=== PATIENT | female | born 1990 | race Caucasian/White ===

== ENCOUNTER 2018-03-09 21:50 | Observation (INO) ==
[2018-03-09 22:12] LABS: Bilirubin,Urine Negative (Negative); Blood,Urine Large (Negative); Clarity,Urine Cloudy (Clear); Color,Urine Yellow (Yellow); Glucose,Urine (UA) Normal (Normal); Ketones,Urine 15 mg/dL (Negative); Leukocyte Esterase,Urine Moderate (Negative); Nitrite,Urine Negative (Negative); Protein,Urine 100 mg/dL (Neg-Trace); Specific Gravity,Urine 1.018 (1.010-1.025); Urobilinogen,Urine Normal (Normal)
[2018-03-09 22:15] LABS: Bacteria,Urine Few per hpf (None-Few); Hyaline Casts,Urine None Seen per lpf (None-Few); RBC,Urine 15-30 per hpf (0-3); Squamous Epithelial Cell,Urine Many per lpf (None-Few); WBC,Urine 50-100 per hpf (0-3)
[2018-03-09] MEDS ORDERED: Ketorolac 30 MG/ML VIAL IVP ONE (23:46)
[2018-03-09] MEDS ORDERED: Ondansetron 4 MG/2 ML VIAL IVP ONE (23:46)
[2018-03-09] MEDS ORDERED: 0.9 % Sodium Chloride 1,000 ML IVC ONE (23:46)
[2018-03-10 00:21] LABS: Basophils % 0.3 %; Hematocrit 41.3 % (35.3-44.9); Hemoglobin 13.6 g/dL (11.5-15.4); Immature Granulocytes % 0.9 % (0-4); Lymphocytes # 0.9 K/mcL (0.6-4.6); Lymphocytes % 11.5 %; Mean Corpuscular HGB Conc 32.9 g/dL (31.6-35.5); Mean Corpuscular Hemoglobin 28.8 pg (28.0-33.3); Mean Corpuscular Volume 87.5 fL (83.0-100.0); Mean Platelet Volume 10.2 fL (9.4-12.4); Monocytes # 0.9 K/mcL (0.0-1.3); Monocytes % 12.1 %; Neutrophils # 5.7 K/mcL (1.6-8.9); Platelet Count 223 K/mcL (140-400); Red Blood Count 4.72 M/mcL (3.82-4.97); Segmented Neutrophils % 75.2 %
[2018-03-10 00:36] LABS: Alanine Aminotransferase 15 Units/L (7-52); Albumin 3.7 g/dL (3.5-5.7); Albumin/Globulin Ratio 0.9 (1.1-2.2); Alkaline Phosphatase 71 Units/L (34-104); Aspartate Amino Transferase 16 Units/L (13-39); BUN/Creatinine Ratio 9 (6-26); Bilirubin,Direct 0.1 mg/dL (0.0-0.2); Bilirubin,Indirect 0.3 mg/dL (0.0-1.2); Bilirubin,Total 0.4 mg/dL (0.3-1.0); Blood Urea Nitrogen 14 mg/dL (6-20); Calcium 9.1 mg/dL (8.6-10.3); Carbon Dioxide 24 mEq/L (23-29); Chloride 100 mEq/L (98-107); Globulin 3.9 g/dL (2.4-3.5); Glucose 107 mg/dL (70-105); Lipase < 3 Units/L (11-82); Osmolality,Calculated 283 (280-300); Potassium 3.5 mEq/L (3.5-5.1); Sodium 136 mEq/L (136-145); Total Protein 7.6 g/dL (6.4-8.9); eGFR For African Americans 47 (> 60); eGFR For Non-African Americans 38 (> 60)
--- NOTE | 2018-03-10 01:10 | Emergency Department Note ---
Disposition Clinical Impression: Pyelonephritis, RIGOBERTO (acute kidney injury) Disposition: Admitted As Inpatient Condition: Fair Time of Disposition: 02:53 Abdominal Pain HPI - General Chief Complaint: ED Urogenital-Female Stated Complaint: NV, Fever, R Flank Pain Time Seen by Provider: 03/09/18 23:05 Source: patient Mode of arrival: ambulatory Limitations: no limitations Nursing Notes Reviewed: Yes Vital Signs Reviewed: Yes - History of Present Illness HPI Narrative: Patient is a 27-year-old female who presents to [facility] ED with a chief complaint of right-sided pain that radiates into the right flank. States she was recently diagnosed with a kidney stone and kidney infection at [place] last week. [facility] she was sent home with ciprofloxacin. However she has had persistent nausea with vomiting and has been unable to keep down anything including the pills. [facility] she has had issues with kidney stones and kidney infections for many years now and she has gone into renal failure 3 times. Patient states she just recently moved to [place] and does not have a primary care physician yet. Pt Subjective Complaint: abdominal pain, flank pain Onset (ago): day(s) Consistency: Worsening Location: RLQ Pain Severity: moderate Pain Scale: 5 Quality: aching, sharp Radiation: R flank Migration to: no migration Improves with: nothing Worsens with: nothing Associated symptoms: Reports: nausea, vomiting, fever (intermittent). Denies: diarrhea, chills Treatments prior to arrival: none - Related Data Allergies Allergy/AdvReac Type Severity Reaction Status Date / Time No Known Allergies Allergy Verified 03/09/18 21:52 All systems ED: reviewed and negative except as stated. Abdominal Pain PMH - Past Medical History Medical history: Reports: fibromyalgia, kidney stones Female Surgical History: Reports: no surgical history Psychiatric history: Reports: anxiety, depression, panic disorder - Social History Smoking status: Never smoker Alcohol use: Reports: none Drug use: Reports: none Physical Exam - General General appearance: alert, in no apparent distress - Head Head exam: atraumatic, normocephalic, normal inspection - Eye Eye exam: Present: normal appearance, EOMI - ENT ENT exam: normal exam, normal oropharynx, mucous membranes moist - Neck Neck exam: Present: normal inspection, full ROM, trachea midline - Chest Chest inspection: Present: normal inspection, symmetric chest wall rise - Respiratory Respiratory exam: Present: normal lung sounds bilaterally - Cardiovascular Cardiovascular exam: Present: normal rhythm, tachycardia - Abdominal Exam Abdominal exam: Present: soft, tenderness, normal bowel sounds. Absent: distention, guarding, rebound, rigidity Abdominal tenderness: Present: RLQ, moderate - Extremities Exam Extremities exam: Present: normal inspection, full ROM. Absent: tenderness, pedal edema - Back Exam Back exam: Present: CVA tenderness (R) - Neurological Exam Neurological exam: Present: alert, oriented X3 - Psychiatric Psychiatric exam: Present: normal affect, normal mood - Skin Skin exam: Present: warm, dry, intact, normal color Course Course Narrative: Patient seen and examined. Patient with recent diagnosis of kidney stone. States she did pass a stone but has continued to have worsening pain and now persistent nausea with vomiting. History of prior renal failure from kidney stones. She is not from around here so we do not have any baseline labs on her. Lab work, CT abdomen and pelvis without contrast ordered. We will place a line, gave her a liter of IV fluids, Zofran for nausea and Toradol for pain. - Reevaluation(s) Reevaluation #1: CT scan shows some signs of pyelonephritis. We will go ahead and treat with Levaquin. Since she does have a creatinine of 1.6, we will go ahead and admit for acute kidney injury and pyelonephritis. Discussed with hospitalist who has accepted her for admission. Time: 01:29 Vital Signs Temperature 98.9 F 03/09/18 21:52 Pulse Rate 121 03/09/18 21:52 Respiratory Rate 18 03/09/18 21:52 Blood Pressure 130/81 03/09/18 21:52 O2 Sat by Pulse Oximetry 96 03/09/18 21:52 Temperature 98.4 F 03/10/18 03:09 Pulse Rate 77 03/10/18 03:09 Respiratory Rate 14 03/10/18 03:09 Blood Pressure 115/71 03/10/18 03:09 O2 Sat by Pulse Oximetry 97 03/10/18 03:09 Oxygen Delivery Oxygen Delivery Room Air Abdominal Pain - Medical Records Medical records reviewed: Yes I reviewed the patient's medical records. - Lab Data Lab results reviewed: Yes I reviewed the patient's lab results. Result diagrams: 03/10/18 04:06 03/10/18 04:06 Lab Results 03/09/18 03/09/18 03/09/18 Range/Units 20:06 20:06 23:59 WBC 7.5 (4.3-11.1) K/mcL RBC 4.72 (3.82-4.97) M/mcL Hgb 13.6 (11.5-15.4) g/dL Hct 41.3 (35.3-44.9) % MCV 87.5 (83.0-100.0) fL MCH 28.8 (28.0-33.3) pg MCHC 32.9 (31.6-35.5) g/dL RDW 13.0 (11.5-14.5) % Plt Count 223 (140-400) K/mcL MPV 10.2 (9.4-12.4) fL Immature Gran % 0.9 (0-4) % Seg Neutrophils % 75.2 % Lymphocytes % 11.5 % Monocytes % 12.1 % Eosinophils % 0.0 % Basophils % 0.3 % Neutrophils # 5.7 (1.6-8.9) K/mcL Lymphocytes # 0.9 (0.6-4.6) K/mcL Monocytes # 0.9 (0.0-1.3) K/mcL Eosinophils # 0.0 (0.0-0.6) K/mcL Basophils # 0.0 (0.0-0.2) K/mcL Sodium (136-145) mEq/L Potassium (3.5-5.1) mEq/L Chloride (98-107) mEq/L Carbon Dioxide (23-29) mEq/L BUN (6-20) mg/dL Creatinine (0.60-1.20) mg/dL Est GFR ( Amer) (> 60) Est GFR (Non-Af Amer) (> 60) BUN/Creatinine Ratio (6-26) Glucose (70-105) mg/dL Calculated Osmolality (280-300) Lactic Acid (0.5-2.2) mmol/L Calcium (8.6-10.3) mg/dL Total Bilirubin (0.3-1.0) mg/dL Direct Bilirubin (0.0-0.2) mg/dL Indirect Bilirubin (0.0-1.2) mg/dL AST (13-39) Units/L ALT (7-52) Units/L Alkaline Phosphatase (34-104) Units/L Serum Total Protein (6.4-8.9) g/dL Albumin (3.5-5.7) g/dL Globulin (2.4-3.5) g/dL Albumin/Globulin Ratio (1.1-2.2) Lipase (11-82) Units/L Urine Color Yellow (Yellow) Urine Clarity Cloudy A (Clear) Urine pH 6.0 (5.0-8.0) pH Units Ur Specific [place] 1.018 (1.010-1.025) Urine Protein 100 H (Neg-Trace) mg/dL Urine Glucose (UA) Normal (Normal) mg/dL Urine Ketones 15 H (Negative) mg/dL Urine Blood Large H (Negative) Urine Nitrite Negative (Negative) Urine Bilirubin Negative (Negative) Urine Urobilinogen Normal (Normal) mg/dL Ur Leukocyte Esterase Moderate H (Negative) Urine Microscopic RBC 15-30 H (0-3) per hpf Urine Microscopic WBC 50-100 H (0-3) per hpf Ur Squamous Epith Cells Many H (None-Few) per lpf Urine Bacteria Few (None-Few) per hpf Hyaline Casts None Seen (None-Few) per lpf Ur Culture Indicated? NO. A (NO) Urine Test Negative (Negative) 03/09/18 03/09/18 Range/Units 23:59 23:59 WBC (4.3-11.1) K/mcL RBC (3.82-4.97) M/mcL Hgb (11.5-15.4) g/dL Hct (35.3-44.9) % MCV (83.0-100.0) fL MCH (28.0-33.3) pg MCHC (31.6-35.5) g/dL RDW (11.5-14.5) % Plt Count (140-400) K/mcL MPV (9.4-12.4) fL Immature Gran % (0-4) % Seg Neutrophils % % Lymphocytes % % Monocytes % % Eosinophils % % Basophils % % Neutrophils # (1.6-8.9) K/mcL Lymphocytes # (0.6-4.6) K/mcL Monocytes # (0.0-1.3) K/mcL Eosinophils # (0.0-0.6) K/mcL Basophils # (0.0-0.2) K/mcL Sodium 136 (136-145) mEq/L Potassium 3.5 (3.5-5.1) mEq/L Chloride 100 (98-107) mEq/L Carbon Dioxide 24 (23-29) mEq/L BUN 14 (6-20) mg/dL Creatinine 1.61 H (0.60-1.20) mg/dL Est GFR ( Amer) 47 L (> 60) Est GFR (Non-Af Amer) 38 L (> 60) BUN/Creatinine Ratio 9 (6-26) Glucose 107 H (70-105) mg/dL Calculated Osmolality 283 (280-300) Lactic Acid 0.7 (0.5-2.2) mmol/L Calcium 9.1 (8.6-10.3) mg/dL Total Bilirubin 0.4 (0.3-1.0) mg/dL Direct Bilirubin 0.1 (0.0-0.2) mg/dL Indirect Bilirubin 0.3 (0.0-1.2) mg/dL AST 16 (13-39) Units/L ALT 15 (7-52) Units/L Alkaline Phosphatase 71 (34-104) Units/L Serum Total Protein 7.6 (6.4-8.9) g/dL Albumin 3.7 (3.5-5.7) g/dL Globulin 3.9 H (2.4-3.5) g/dL Albumin/Globulin Ratio 0.9 L (1.1-2.2) Lipase < 3 L (11-82) Units/L Urine Color (Yellow) Urine Clarity (Clear) Urine pH (5.0-8.0) pH Units Ur Specific [place] (1.010-1.025) Urine Protein (Neg-Trace) mg/dL Urine Glucose (UA) (Normal) mg/dL Urine Ketones (Negative) mg/dL Urine Blood (Negative) Urine Nitrite (Negative) Urine Bilirubin (Negative) Urine Urobilinogen (Normal) mg/dL Ur Leukocyte Esterase (Negative) Urine Microscopic RBC (0-3) per hpf Urine Microscopic WBC (0-3) per hpf Ur Squamous Epith Cells (None-Few) per lpf Urine Bacteria (None-Few) per hpf Hyaline Casts (None-Few) per lpf Ur Culture Indicated? (NO) Urine Test (Negative) - Radiology Data Radiology results reviewed: Yes I reviewed the patient's radiology results. Abdomen/Pelvis CT 03/09/18 23:49 IMPRESSION: 1. No evidence of obstructive uropathy. 2. Nonobstructing bilateral renal calculi. 3. Stranding about the right kidney and right proximal ureter may reflect recently passed stone or urinary tract infection/ pyelonephritis. Correlate with urinalysis. 4. Question gallbladder sludge or small cholelithiasis. D/ / Mary Carmen Meyers MD / Mary Carmen Meyers MD Interpreting Provider: Mary Carmen Meyers MD Attestation Statement - Attestation Attestation: I examined this patient and my medical decision-making was reviewed with the Resident Physician. I agree with the documented findings, disposition and treatment plan as described except to the extent set forth below. Findings consistent with pyelonephritis. There is evidence of acute kidney injury. We will start IV fluids, antibiotics, admitted for further management.
[2018-03-10] MEDS ORDERED: Levofloxacin 750 MG/150 ML 750 MG/150 ML BAG IVPB ONE (01:29)
[2018-03-10] MEDS ORDERED: Naloxone 0.4 MG/ML INJ IVP PRN (03:56)
[2018-03-10] MEDS ORDERED: *HR* FentaNYL (PF) 100 MCG/2 ML VIAL IVP PRN (03:59)
[2018-03-10] MEDS ORDERED: Acetaminophen 325 MG TABLET PO PRN ×2 (03:59→09:49)
[2018-03-10] MEDS ORDERED: Ringers Solution, Lactated 1,000 ML IVC SCH (04:00)
--- NOTE | 2018-03-10 04:16 | Internal Med History&Physical ---
Date of Encounter: 03/10/18 Time of Encounter: 04:15 Internal Medicine - H&P: HPI Chief complaint: Right flank pain Admitted From: Emergency Dept Plans for Post Hospital Care: Home History of present illness: Ms. Sutherland is a 27 year old female with h/o- kidney stones, who presents with c/ o- right flank pain. Patient reports that her symptoms started 3 days ago, on , with sudden onset of right-sided flank pain, moderate-severe in intensity, nonradiating, associated with nausea. She presented to [facility] in [place] on Saturday, had CT abdomen done, diagnosed with kidney stones and UTI and was sent home on PO Ciprofloxacin. SHe passed a stone on Saturday, however continued to have right flank pain with intermittent fever/chills, nausea, vomiting, and could not take antibiotic pills. She does not have Urologist at this time, recently relocated from [place]. Past Med Surg Social Fam HX - Past Medical History Source: patient Medical history: fibromyalgia, kidney stones Psychiatric history: anxiety, depression - Past Surgical History Surgical History: no surgical history - Social History Smoking Status: Never smoker Smokeless Tobacco Status: No Alcohol use: none Drug use: none Current living situation: Home, With Family Activity Level: Independent ambulation Recent Out of Country Travel Within the Last 8 Weeks: No Exposure or Possible Exposure to Illness During Travel: No - Family History Grandfather Hx Family Cardiac Disorders: Yes (CAD) Internal Medicine - H&P: Meds 3 Allergy/AdvReac Type Severity Reaction Status Date / Time No Known Allergies Allergy Verified 03/09/18 21:52 All Systems PM: A 10-system review of systems was performed and is negative for pertinent findings except as documented above in the HPI. - Constitutional Constitutional: chills, fever(s), malaise - EENT Eyes: no change in vision, no discharge, no pain, no photophobia Ears: no ear discharge, no ear pain, no tinnitus Nose, mouth and throat: no dysphagia, no nasal discharge, no neck pain, no sore throat - Cardiovascular Cardiovascular ROS IM: no chest pain, no diaphoresis, no dyspnea, no lightheadedness, no palpitations, no syncope - Respiratory Respiratory: no cough, no dyspnea, no wheezing, no excessive phlegm production - Gastrointestinal Gastrointestinal: nausea, vomiting - Genitourinary Genitourinary: dysuria, flank pain, no change in urinary stream, no hematuria - Musculoskeletal Musculoskeletal ROS IM: no numbness, no tingling - Integumentary Integumentary IM: no rash, no unusual bruising - Neurological Neurological ROS: no confusion, no convulsions, no focal weakness, no numbness, no tingling, no tremor(s) - Hematologic/Lymphatic Hematologic/Lymphatic: no easy bruising - Constitutional Vitals: Temp Pulse Resp BP Pulse Ox 98.4 F 77 14 115/71 97 03/10/18 03:09 03/10/18 03:09 03/10/18 03:09 03/10/18 03:09 03/10/18 03:09 General appearance: Present: A&O X 3, answers questions appropriately - Respiratory Respiratory exam: Present: CTAB. Absent: accessory muscle use, rales, rhonchi, wheezes - Cardiovascular Cardiovascular exam: Present: RRR, +S1, +S2. Absent: diastolic murmur, gallop, rubs, systolic murmur - GI/Abdominal GI/Abdominal exam: Present: normal bowel sounds, soft (obese), no peritoneal signs. Absent: distended, tenderness - Extremities Exam Extremities exam: Present: full ROM, warm, radial pulses palpable and symmetrical. Absent: calf tenderness, cyanotic, pedal edema - Back Exam Back exam: Present: CVA tenderness (R) - Neurological Exam Neurological exam: Present: CN II-XII intact, oriented X3, no focal deficits. Absent: pronater drift, facial droop, speech deficit - Skin Skin exam: Present: dry, intact Internal Med - H&P Results - Labs CBC & Chem 7: 03/10/18 04:06 03/10/18 04:06 - Assessment and plan (1) UTI (urinary tract infection) Current Visit: Yes Status: Suspected Assessment and plan: CT abdomen/pelvis shows B/L nonobstructive renal calculi, stranding around right kidney and proximal ureter, could be infection vs recently passed stone. f/up urine culture and continue IV Rocephin; received a dose of IV Levaquin in the ER; Qualifiers: Urinary tract infection type: acute pyelonephritis Qualified Code(s): N10 - Acute pyelonephritis (2) Nephrolithiasis Current Visit: Yes Status: Suspected Assessment and plan: plan as above; (3) RIGOBERTO (acute kidney injury) Current Visit: Yes Status: Acute Assessment and plan: baseline serum creatinine unknown but patient has no known h/o- CKD. RIGOBERTO likely due to recent renal stones and UTI; continue IV hydration and monitor serum creatinine closely; avoid nephrotoxins; - Time Spent With Patient Total time spent is greater than 50% in coordination of care (as documented) at patient's floor/unit and/or counseling patient:
[2018-03-10] MEDS: *HR* HYDROcodone/Acet 5/325 mg TABLET PO PRN ×3 (04:46→19:48)
[2018-03-10 04:52] LABS: Basophils % 0.3 %; Eosinophils % 0.2 %; Hematocrit 37.2 % (35.3-44.9); Hemoglobin 12.1 g/dL (11.5-15.4); Immature Granulocytes % 1.1 % (0-4); Lymphocytes # 1.2 K/mcL (0.6-4.6); Lymphocytes % 19.2 %; Mean Corpuscular HGB Conc 32.5 g/dL (31.6-35.5); Mean Corpuscular Hemoglobin 28.7 pg (28.0-33.3); Mean Corpuscular Volume 88.2 fL (83.0-100.0); Mean Platelet Volume 10.2 fL (9.4-12.4); Monocytes # 0.8 K/mcL (0.0-1.3); Monocytes % 12.7 %; Neutrophils # 4.3 K/mcL (1.6-8.9); Platelet Count 187 K/mcL (140-400); Red Blood Count 4.22 M/mcL (3.82-4.97); Red Cell Distribution Width 13.2 % (11.5-14.5); Segmented Neutrophils % 66.5 %
[2018-03-10 05:11] LABS: Calcium 8.6 mg/dL (8.6-10.3); Magnesium 1.8 mg/dL (1.6-2.6)
[2018-03-10] MEDS: cefTRIAXone 2,000 MG in Water for inj. (sterile) 20 ML 20 ML IVPB SCH (07:21)
[2018-03-10] MEDS: 0.9 % Sodium Chloride 1,000 ML IVC SCH (13:38)
[2018-03-10] MEDS: Ondansetron 4 MG/2 ML VIAL IVP PRN ×2 (13:45→19:48)
--- NOTE | 2018-03-10 15:40 | Event Note ---
Date of Encounter: 03/10/18 Time of Encounter: 15:15 Ms Sutherland was admitted earlier today with acute pyelonephritis and acute renal insufficiency. She has improved clinically and is able to tolerate some PO intake. Potassium replaced. Creatinine is still elevated. Exam alert Comfortable Mucus membranes dry Heart reg No wheeze I/P 1. Acute pyelo 2. Hypokalemia 3. RIGOBERTO Recheck labs tomorrow. Probable d/c tomorrow.
[2018-03-11] MEDS: 0.9 % Sodium Chloride 1,000 ML IVC SCH (03:07)
[2018-03-11 06:36] LABS: Hematocrit 36.1 % (35.3-44.9); Hemoglobin 11.8 g/dL (11.5-15.4); Mean Corpuscular HGB Conc 32.7 g/dL (31.6-35.5); Mean Corpuscular Hemoglobin 28.6 pg (28.0-33.3); Mean Corpuscular Volume 87.6 fL (83.0-100.0); Mean Platelet Volume 9.8 fL (9.4-12.4); Platelet Count 211 K/mcL (140-400); Red Blood Count 4.12 M/mcL (3.82-4.97); Red Cell Distribution Width 13.3 % (11.5-14.5)
[2018-03-11 06:45] LABS: BUN/Creatinine Ratio 10 (6-26); Blood Urea Nitrogen 10 mg/dL (6-20); Calcium 8.5 mg/dL (8.6-10.3); Carbon Dioxide 22 mEq/L (23-29); Chloride 108 mEq/L (98-107); Glucose 81 mg/dL (70-105); Magnesium 1.8 mg/dL (1.6-2.6); Osmolality,Calculated 286 (280-300); Potassium 3.5 mEq/L (3.5-5.1); Sodium 139 mEq/L (136-145); eGFR For African Americans > 60 (> 60); eGFR For Non-African Americans > 60 (> 60)
[2018-03-11] MEDS: cefTRIAXone 2,000 MG in Water for inj. (sterile) 20 ML 20 ML IVPB SCH (07:12)
[2018-03-11] MEDS: *HR* HYDROcodone/Acet 5/325 mg TABLET PO PRN (07:14)
--- NOTE | 2018-03-11 09:45 | Discharge Summary ---
- NOTES TO OUTPATIENT PROVIDER Notes to Outpatient Provider: Follow-up with UTI symptoms, Fevers, and N/V. Repeat BMP in 3-5 days. Orders not resulted at time of discharge: Pending orders 03/10/18 22:00 Culture,Urine [RM] Stat Date of Encounter: 03/11/18 Time of Encounter: 09:40 - Discharge Diagnosis (1) RIGOBERTO (acute kidney injury) Priority: Primary Status: Resolved (2) UTI (urinary tract infection) Priority: Secondary Status: Suspected Qualifiers: Urinary tract infection type: acute pyelonephritis Qualified Code(s): N10 - Acute pyelonephritis (3) Nephrolithiasis Priority: Secondary Status: Suspected Hospital course: Ms. Sutherland is a 27 year old female with h/o- kidney stones, who presents with c/ o- right flank pain. Patient reports that her symptoms started 3 days ago, on , with sudden onset of right-sided flank pain, moderate-severe in intensity, nonradiating, associated with nausea. She presented to [facility] in [place] on Saturday, had CT abdomen done, diagnosed with kidney stones and UTI and was sent home on PO Ciprofloxacin. She passed a stone on Saturday, however continued to have right flank pain with intermittent fever/chills, nausea, vomiting, and could not take antibiotic pills. She does not have Urologist at this time, recently relocated from [place]. She was admitted and started on IV fluids and Rocephin. She was given IV Zofran and [place] for symptomatic relief. Patient was afebrile. With IV fluids, RIGOBERTO resolved. Patient had some pain but was improving. Urine cultures pending at time of discharged. She was discharged home in stable condition to complete Omnicef for 14 days. - Time Spent with Patient Total time spent providing and/or coordinating discharge services: - Discharge Medications Home Medications: Cefdinir [Omnicef] 300 mg PO BID #28 capsule 03/11/18 [Rx] Oxycodone HCl/Acetaminophen [Percocet 5-325 mg Tablet] 1 each PO Q8HR PRN 3 Days #9 tablet 03/11/18 [Rx] Promethazine [Phenergan] 12.5 mg PO Q8HR PRN #21 tablet 03/11/18 [Rx] Allergies/Adverse Reactions: 3 Allergy/AdvReac Type Severity Reaction Status Date / Time No Known Allergies Allergy Verified 03/09/18 21:52 Date of admission: 03/10/18 02:05 Primary care physician: PCP NONE Discharging clinician: Lizzie Hickman - Constitutional Vitals: Temp Pulse Resp BP Pulse Ox 98.8 F 87 14 116/74 97 03/11/18 06:33 03/11/18 06:33 03/11/18 06:33 03/11/18 06:33 03/11/18 06:33 General appearance: Present: A&O X 3, answers questions appropriately - Head Head exam: Present: atraumatic, normocephalic - Eye Eye exam: Present: PERRL, conjuntiva pink, sclera anicteric Pupils: Present: PERRL - Neck Neck exam general surgery: Present: supple, trachea midline. Absent: lymphadenopathy - Respiratory Respiratory exam: Present: CTAB. Absent: accessory muscle use, rales, rhonchi, wheezes - Cardiovascular Cardiovascular exam: Present: RRR, +S1, +S2. Absent: diastolic murmur, gallop, rubs, systolic murmur - GI/Abdominal GI/Abdominal exam: Present: normal bowel sounds, soft, no peritoneal signs. Absent: distended, tenderness - Extremities Exam Extremities exam: Present: warm, radial pulses palpable and symmetrical. Absent : calf tenderness, cyanotic, pedal edema - Neurological Exam Neurological exam: Present: CN II-XII intact, oriented X3, no focal deficits. Absent: pronater drift, facial droop, speech deficit - Skin Skin exam: Present: dry, intact - Patient Status Disposition: Home, Self-Care Condition: Fair Functional capacity at discharge: independent ambulation Overall status at discharge: patient is back to baseline - Discharge Instructions Follow Up With: NONE,PCP [Primary Care Provider] - Additional Instructions: Follow-up with new established primary care physician in 2-3 days. Follow-up with Urology. - Diet and Activity Activity: increase activity as tolerated Diet: advance to your usual diet
[2018-03-11 11:02] VITALS: BP 104/66
== END 2018-03-11 13:00 | disposition home or self-care (01) ==
LOC: 3ANU 21:50 → EMEROO 21:50 → SUATTDRO 03-10 02:05 → 3ANU 03-10 02:54
PROVIDERS: ADMIT Internal Medicine; ATTEND Student in an Organized Health Care Education/Training Program